=== PATIENT | male | born 1995 | race Caucasian/White ===

== ENCOUNTER 2017-07-15 20:00 | Inpatient (IN) | payer OTHER ==
[2017-07-15 20:03] VITALS: BMI 20.9
--- NOTE | 2017-07-16 00:05 | HP ---
COWS - Scale Resting Pulse: 0= ME 80 or Below Sweatin=Flushed/Facial Moisture Restless Observation: 1= Difficult to Sit Still Pupil Size: 1= Pupils >than Normal Bone or Joint Aches: 4=Acute Joint/Muscle Pain Runny Nose/ Eye Tearin= None GI Upset > 30mins: 1= Stomach Cramp Tremor Observation: 2= Slight Tremor Visible Yawning Observation: 1= 1-2x During Session Anxiety or Irritability: 2=Irritable/Anxious Goose Flesh Skin: 0=Smooth Skin COWS Score: 14 Admission [facility] Chief Complaint: Heroin withdrawal symptoms Allergies/Adverse Reactions: Allergies Allergy/AdvReac Type Severity Reaction Status Date / Time No Known Allergies Allergy Verified 07/15/17 22:06 History of Present Illness: 22 years old male with a year history of heroin dependence is seeking admission to detox. This is patient's first detox and first admission to [facility]. Patient has medical history of depression and denies suicidal attempt and suicidal ideation at this time. Exam Limitations: No Limitations - Ebola screening Have you traveled outside of the country in the last 21 days: No Have you had contact with anyone from an Ebola affected area: No Have you been sick,other than usual withdrawal symptoms: No Do you have a fever: No - Review of Systems Constitutional: Chills, Loss of Appetite, Night Sweats, Changes in sleep, Weakness EENT: reports: No Symptoms Reported Respiratory: reports: No Symptoms reported Cardiac: reports: No Symptoms Reported GI: reports: Poor Appetite, Poor Fluid Intake, Abdominal cramping : reports: No Symptoms Reported Musculoskeletal: reports: Back Pain, Joint Pain, Muscle Pain, Muscle Weakness Integumentary: reports: No Symptoms Reported Neuro: reports: Headache Endocrine: reports: Flushing Hematology: reports: No Symptoms Reported Psychiatric: reports: Mood/Affect Appropiate, Orientated x3, Depressed Other Systems: Reviewed and Negative Patient History - Patient Medical History Hx Anemia: No Hx Asthma: No Hx Chronic Obstructive Pulmonary Disease (COPD): No Hx Cardiac Disorders: No Hx Hypertension: No Hx Hypercholesterolemia: No Hx Pacemaker: No HX Cerebrovascular Accident: No Hx Seizures: No Hx Diabetes: No Hx Gastrointestinal Disorders: No Hx Liver Disease: No Hx Genitourinary Disorders: No Hx Sexually Transmitted Disorders: No Hx Renal Disease (ESRD): No Hx Thyroid Disease: No Hx Human Immunodeficiency Virus (HIV): No (Negative 2017) Hx Hepatitis C: No Hx Depression: Yes Hx Suicide Attempt: No (Denies suicide attempt and suicidal ideation at this time) Hx Bipolar Disorder: No Hx Schizophrenia: No - Patient Surgical History Past Surgical History: No Hx Neurologic Surgery: No Hx Cataract Extraction: No Hx Cardiac Surgery: No Hx Lung Surgery: No Hx Abdominal Surgery: No Hx Appendectomy: No Hx Cholecystectomy: No Hx Genitourinary Surgery: No Hx Section: No Hx Orthopedic Surgery: No Anesthesia Reaction: No - PPD History Previous Implant?: Yes Documented Results: Negative w/proof Implanted On Prior R Admission?: No PPD to be Administered?: Yes - Reproductive History Patient is a Female of Child Bearing Age (11 -55 yrs old): No (MALE) - Smoking Cessation Smoking history: Current some day smoker Have you smoked in the past 12 months: Yes Aproximately how many cigarettes per day: 1 Hx Chewing Tobacco Use: No Initiated information on smoking cessation: Yes 'Breaking Loose' booklet given: 07/16/17 - Substance & Tx. History Hx Alcohol Use: No Hx Substance Use: Yes Substance Use Type: Heroin, Opiates Hx Substance Use Treatment: No - Substances Abused Heroin Route: Inhalation Frequency: Daily Amount used: 10 bags Age of first use: 19 Date of Last Use: 07/15/17 Family Disease History - Family Disease History Family Disease History: Respiratory: Mother (COPD, EMPHYSEMA) Admission Physical Exam BHS - Vital Signs Vital Signs: Vital Signs - 24 hr 07/15/17 20:00 Temperature 98.7 F Pulse Rate 78 Respiratory 18 Rate Blood Pressure 130/62 - Physical General Appearance: Yes: Moderate Distress HEENTM: Yes: EOMI, Normal ENT Inspection, Normal Voice, SARAH Respiratory: Yes: Lungs Clear, Normal Breath Sounds, No Respiratory Distress Neck: Yes: Supple Breast: Yes: Breast Exam Deferred Cardiology: Yes: Regular Rhythm, Regular Rate Abdominal: Yes: Normal Bowel Sounds, Soft Genitourinary: Yes: Within Normal Limits Back: Yes: Normal Inspection Musculoskeletal: Yes: Back pain, Muscle Pain, Muscle weakness Extremities: Yes: Tremors Neurological: Yes: Alert, Normal Mood/Affect Integumentary: Yes: Warm Lymphatic: Yes: Within Normal Limits - Diagnostic (1) Opioid dependence with withdrawal Current Visit: Yes Status: Chronic (2) Depression Current Visit: Yes Status: Chronic Qualifiers: Depression Type: unspecified Qualified Code(s): F32.9 - Major depressive disorder, single episode, unspecified (3) Nicotine dependence Current Visit: Yes Status: Chronic Qualifiers: Nicotine product type: cigarettes Substance use status: uncomplicated Qualified Code(s): F17.210 - Nicotine dependence, cigarettes, uncomplicated BHS Breath Alcohol Content Breath Alcohol Content: 0 Urine Drug Screen - Results Drug Screen Negative: No Urine Drug Screen Results: OPI-Opiates, TCA-Tricyclic Antidepress, OXY-Oxycodone
[2017-07-16] MEDS ORDERED: METHADONE HCL 10 MG TABLET (FOR DETOX USE ONLY) PO ONE ×4 (01:27→23:00)
[2017-07-16] MEDS: diazePAM 5 MG TABLET PO PRN ×4 (01:58→22:32)
[2017-07-16] MEDS ORDERED: MENTHOL/PHENOL 1 EACH UD MM PRN (09:44)
[2017-07-16] MEDS ORDERED: hydrOXYzine PAMOATE 25 MG CAPSULE (FP) PO PRN (09:44)
[2017-07-16] MEDS ORDERED: guaiFENesin/D-METHORPHAN HB 10 ML UNIT-DOSE CUPS PO PRN (09:44)
[2017-07-16] MEDS ORDERED: MAG HYDROX/AL HYDROX/SIMETH 30 ML UNIT-DOSE CUP PO PRN (09:44)
[2017-07-16] MEDS ORDERED: MAGNESIUM HYDROX 2400MG/30ML ORAL SUSPENSION 30 ML CUP PO PRN (09:44)
[2017-07-16] MEDS ORDERED: P-EPHED 60MG/TRIPROLIDI 2.5MG TABLET PO PRN (09:44)
[2017-07-16] MEDS ORDERED: LOPERAMIDE HCL 2 MG CAPSULE PO PRN (09:44)
[2017-07-16] MEDS ORDERED: IBUPROFEN 400 MG TABLET (FP) PO PRN (09:44)
[2017-07-16] MEDS ORDERED: ACETAMINOPHEN 325 MG TABLET (FP) PO PRN (09:44)
[2017-07-16] MEDS ORDERED: MAGNESIUM CITRATE 300 ML BOTTLE PO PRN (09:44)
--- NOTE | 2017-07-16 09:57 | PN ---
BHS COWS - Scale Resting Pulse: 1= [place] 81-100 Sweatin= Chills/Flushing Restless Observation: 3= Extraneous Movement Pupil Size: 1= Pupils >than Normal Bone or Joint Aches: 2= Severe Diffuse Aches Runny Nose/ Eye Tearin= Runny Nose/Eyes GI Upset > 30mins: 2= Nausea/Diarrhea Tremor Observation of Outstretched Hands: 2= Slight Tremor Visible Yawning Observation: 1= 1-2x During Session Anxiety or Irritability: 2=Irritable/Anxious Goose Flesh Skin: 0=Smooth Skin COWS Score: 17 BHS Progress Note (SOAP) Subjective: ALERT,IRRITABLE,ANXIOUS,INTERRUPTED SLEEP,PAIN IN THE BODY AND BACK,VOMITING, TREMOR Objective: 07/16/17 09:55 Vital Signs Temperature 98.2 F 07/16/17 09:00 Pulse Rate 94 H 07/16/17 09:00 Respiratory Rate 18 07/16/17 09:00 Blood Pressure 122/81 07/16/17 09:00 O2 Sat by Pulse Oximetry (%) EKG NSR WITH SINUS ARRHYTHMIA 80/MIN PROLONG QT356/410 NO CHEST PAIN,NO SOB,NO DIZZINESS Assessment: 07/16/17 09:57 WITHDRAWAL SYMPTOM Plan: CONTINUE DETOX
[2017-07-16] MEDS: PRENATAL VITAMINS W/ FOLIC ACID TABLET (FP) PO SCH (10:16)
[2017-07-16] MEDS: cloNIDine HCL 0.1 MG TABLET PO SCH ×2 (10:18→22:32)
[2017-07-16] MEDS: CYCLOBENZAPRINE HCL 10 MG TABLET (FP) PO PRN ×2 (10:18→22:32)
[2017-07-16] MEDS: ONDANSETRON *ODT* 4 MG TABLET SL PRN ×2 (10:18→17:51)
--- NOTE | 2017-07-16 13:51 | EKG ---
Test Reason : Blood Pressure : / mmHG Vent. Rate : 080 BPM Atrial Rate : 080 BPM P-R Int : 148 ms QRS Dur : 080 ms QT Int : 356 ms P-R-T Axes : 073 059 040 degrees QTc Int : 410 ms NORMAL SINUS RHYTHM WITH SINUS ARRHYTHMIA NORMAL ECG NO PREVIOUS ECGS AVAILABLE Confirmed by MD Scott, Asher ([id number]) on 07/16/2017 1:50:58 PM Referred By: Confirmed By:Asher Chavez MD
[2017-07-16 15:00] LABS: URINE APPEARANCE CLEAR; URINE BILIRUBIN NEGATIVE (<2.0 mg/dL); URINE COLOR YELLOW; URINE GLUCOSE (UA) NEGATIVE (NEGATIVE); URINE KETONE NEGATIVE (NEGATIVE); URINE LEUK ESTERASE NEGATIVE (NEGATIVE); URINE NITRITE NEGATIVE (NEGATIVE); URINE PROTEIN NEGATIVE (NEGATIVE)
[2017-07-16] MEDS ORDERED: MELATONIN 5 MG TABLETS PO PRN (22:00)
[2017-07-16] MEDS: THIAMINE HCL 100 MG TABLET (FP) PO SCH (22:31)
[2017-07-17] MEDS ORDERED: METHADONE HCL 10 MG TABLET (FOR DETOX USE ONLY) PO ONE ×2 (10:00)
[2017-07-17 10:18] LABS: HEMATOCRIT 41.5 % (35.4-49); HEMOGLOBIN 14.6 GM/dL (11.7-16.9); MCHC 35.2 g/dl (32.0-35.9); MEAN CELL VOLUME 87.9 fl (80-96); MEAN PLT VOLUME 8.6 fl (7.5-11.1); PLATELET COUNT 234 K/MM3 (134-434); RBC 4.73 M/mm3 (4.00-5.60); RDW 13.2 % (11.9-15.9); WHITE BLOOD COUNT 6.6 K/mm3 (4.0-10.0)
[2017-07-17] MEDS: CYCLOBENZAPRINE HCL 10 MG TABLET (FP) PO PRN ×2 (10:49→22:29)
[2017-07-17] MEDS: PRENATAL VITAMINS W/ FOLIC ACID TABLET (FP) PO SCH (10:49)
[2017-07-17] MEDS: cloNIDine HCL 0.1 MG TABLET PO SCH ×2 (10:49→22:29)
[2017-07-17] MEDS: diazePAM 5 MG TABLET PO PRN ×3 (10:50→22:29)
[2017-07-17 10:57] LABS: CHLORIDE 108 mmol/L (98-107); POTASSIUM 4.3 mmol/L (3.5-5.1); SODIUM 142 mmol/L (136-145)
--- NOTE | 2017-07-17 11:32 | PN ---
BHS COWS - Scale Resting Pulse: 1= [place] 81-100 Sweatin= Chills/Flushing Restless Observation: 3= Extraneous Movement Pupil Size: 1= Pupils >than Normal Bone or Joint Aches: 2= Severe Diffuse Aches Runny Nose/ Eye Tearin= Runny Nose/Eyes GI Upset > 30mins: 2= Nausea/Diarrhea Tremor Observation of Outstretched Hands: 2= Slight Tremor Visible Yawning Observation: 1= 1-2x During Session Anxiety or Irritability: 2=Irritable/Anxious Goose Flesh Skin: 0=Smooth Skin COWS Score: 17 S Progress Note (SOAP) Subjective: ALERT,IRRITABLE,PAIN IN THE BODY AND BACK,TREMOR,INTERRUPTED SLEEP Objective: 07/17/17 11:31 Vital Signs Temperature 99.1 F 07/17/17 09:34 Pulse Rate 99 H 07/17/17 09:34 Respiratory Rate 16 07/17/17 09:34 Blood Pressure 118/72 07/17/17 09:34 O2 Sat by Pulse Oximetry (%) Laboratory Last Values WBC 6.6 K/mm3 (4.0-10.0) 07/17/17 07:30 RBC 4.73 M/mm3 (4.00-5.60) 07/17/17 07:30 Hgb 14.6 GM/dL (11.7-16.9) 07/17/17 07:30 Hct 41.5 % (35.4-49) 07/17/17 07:30 MCV 87.9 fl (80-96) 07/17/17 07:30 MCH 31.0 pg (25.7-33.7) 07/17/17 07:30 MCHC 35.2 g/dl (32.0-35.9) 07/17/17 07:30 RDW 13.2 % (11.9-15.9) 07/17/17 07:30 Plt Count 234 K/MM3 (134-434) 07/17/17 07:30 MPV 8.6 fl (7.5-11.1) 07/17/17 07:30 Urine Color Yellow 07/16/17 10:30 Urine Appearance Clear 07/16/17 10:30 Urine pH 6.0 (5.0-8.0) 07/16/17 10:30 Ur Specific [place] 1.026 (1.001-1.035) 07/16/17 10:30 Urine Protein Negative (NEGATIVE) 07/16/17 10:30 Urine Glucose (UA) Negative (NEGATIVE) 07/16/17 10:30 Urine Ketones Negative (NEGATIVE) 07/16/17 10:30 Urine Blood Negative (NEGATIVE) 07/16/17 10:30 Urine Nitrite Negative (NEGATIVE) 07/16/17 10:30 Urine Bilirubin Negative (<2.0 mg/dL) 07/16/17 10:30 Urine Urobilinogen 2.0 mg/dL (0.2-1.0) 07/16/17 10:30 Ur Leukocyte Esterase Negative (NEGATIVE) 07/16/17 10:30 LABS PENDING Assessment: 07/17/17 11:32 WITHDRAWAL SYMPTOM Plan: CONTINUE DETOX
[2017-07-17 12:05] LABS: ALBUMIN 4.2 g/dl (3.4-5.0); ALK PHOS 65 U/L (45-117); ANION GAP 5 (8-16); BILIRUBIN,TOTAL 0.9 mg/dL (0.2-1.0); BLOOD UREA NITROGEN 11 mg/dL (7-18); CALCIUM 9.5 mg/dL (8.5-10.1); CO2 29 mmol/L (21-32); CREATININE 0.8 mg/dL (0.7-1.3); GLUCOSE,RANDOM 89 mg/dL (74-106); SGOT/AST 29 U/L (15-37); SGPT/ALT 81 U/L (12-78); TOT PROT 7.7 g/dl (6.4-8.2)
[2017-07-17] MEDS: THIAMINE HCL 100 MG TABLET (FP) PO SCH (22:29)
[2017-07-18] MEDS ORDERED: METHADONE HCL 5 MG TABLET (FOR DETOX USE ONLY) PO ONE ×2 (10:00)
[2017-07-18] MEDS: CYCLOBENZAPRINE HCL 10 MG TABLET (FP) PO PRN ×2 (10:06→22:23)
[2017-07-18] MEDS: PRENATAL VITAMINS W/ FOLIC ACID TABLET (FP) PO SCH (10:06)
[2017-07-18] MEDS: cloNIDine HCL 0.1 MG TABLET PO SCH ×2 (10:06→22:22)
[2017-07-18] MEDS: diazePAM 5 MG TABLET PO PRN ×3 (10:07→22:23)
--- NOTE | 2017-07-18 12:37 | PN ---
BHS Progress Note (SOAP) Subjective: ALERT,IRRITABLE,ANXIOUS,INTERRUPTED SLEEP Objective: 07/18/17 12:36 Vital Signs Temperature 97.7 F 07/18/17 09:24 Pulse Rate 83 07/18/17 09:24 Respiratory Rate 20 07/18/17 09:24 Blood Pressure 113/67 07/18/17 09:24 O2 Sat by Pulse Oximetry (%) Assessment: 07/18/17 12:36 WITHDRAWAL SYMPTOM Plan: CONTINUE DETOX
[2017-07-18] MEDS: THIAMINE HCL 100 MG TABLET (FP) PO SCH (22:22)
--- NOTE | 2017-07-19 08:28 | PN ---
BHS Progress Note (SOAP) Subjective: ALERT,IRRITABLE,ANXIOUS,INTERRUPTED SLEEP,PAIN IN THE BODY AND BACK Objective: 07/19/17 08:27 Vital Signs Temperature 97.7 F 07/19/17 06:20 Pulse Rate 68 07/19/17 06:20 Respiratory Rate 16 07/19/17 06:20 Blood Pressure 107/67 07/19/17 06:20 O2 Sat by Pulse Oximetry (%) Assessment: 07/19/17 08:27 WITHDRAWAL SYMPTOM BUT LESS Plan: CONTINUE DETOX,MEDICATION ADJUST,DISCHARGE IN AM
[2017-07-19 09:43] VITALS: BP 135/71; PULSE 109; TEMP 98.8
[2017-07-19] MEDS ORDERED: METHADONE HCL 10 MG TABLET (FOR DETOX USE ONLY) PO ONE (10:00)
[2017-07-19] MEDS ORDERED: METHADONE HCL 5 MG TABLET (FOR DETOX USE ONLY) PO ONE ×2 (10:00)
[2017-07-19] MEDS: cloNIDine HCL 0.1 MG TABLET PO SCH (10:50)
[2017-07-19] MEDS: PRENATAL VITAMINS W/ FOLIC ACID TABLET (FP) PO SCH (10:50)
--- NOTE | 2017-07-19 11:27 | PN ---
S Progress Note Note: PATIENT DID NOT WANT TO COMPLETE TREATMENT,SIGNED RELEASE AMA,ATTEMPTS TO CONVINCE PATIENT TO STAY WITH NO AVAIL
--- NOTE | 2017-07-19 11:30 | DS ---
[facility] Detox Discharge Summary Admission Date: 07/15/17 Discharge Date: 07/19/17 - History Present History: Cocaine Dependence, Opioid Dependence Pertinent Past History: PATIENT DID NOT WANT TO COMPLETE TREATMENT,SIGNED RELEASE AMA - Physical Exam Results Vital Signs: Vital Signs Temperature 98.8 F 07/19/17 09:42 Pulse Rate 109 H 07/19/17 09:42 Respiratory Rate 16 07/19/17 09:42 Blood Pressure 135/71 07/19/17 09:42 O2 Sat by Pulse Oximetry (%) Pertinent Admission Physical Exam Findings: WITHDRAWAL SIGNS AND SYMPTOM Vital Signs Temperature 98.8 F 07/19/17 09:42 Pulse Rate 109 H 07/19/17 09:42 Respiratory Rate 16 07/19/17 09:42 Blood Pressure 135/71 07/19/17 09:42 O2 Sat by Pulse Oximetry (%) Laboratory Last Values WBC 6.6 K/mm3 (4.0-10.0) 07/17/17 07:30 RBC 4.73 M/mm3 (4.00-5.60) 07/17/17 07:30 Hgb 14.6 GM/dL (11.7-16.9) 07/17/17 07:30 Hct 41.5 % (35.4-49) 07/17/17 07:30 MCV 87.9 fl (80-96) 07/17/17 07:30 MCH 31.0 pg (25.7-33.7) 07/17/17 07:30 MCHC 35.2 g/dl (32.0-35.9) 07/17/17 07:30 RDW 13.2 % (11.9-15.9) 07/17/17 07:30 Plt Count 234 K/MM3 (134-434) 07/17/17 07:30 MPV 8.6 fl (7.5-11.1) 07/17/17 07:30 Sodium 142 mmol/L (136-145) 07/17/17 07:30 Potassium 4.3 mmol/L (3.5-5.1) 07/17/17 07:30 Chloride 108 mmol/L (98-107) H 07/17/17 07:30 Carbon Dioxide 29 mmol/L (21-32) 07/17/17 07:30 Anion Gap 5 (8-16) L 07/17/17 07:30 BUN 11 mg/dL (7-18) 07/17/17 07:30 Creatinine 0.8 mg/dL (0.7-1.3) 07/17/17 07:30 Creat Clearance w eGFR > 60 (>60) 07/17/17 07:30 Random Glucose 89 mg/dL (74-106) 07/17/17 07:30 Calcium 9.5 mg/dL (8.5-10.1) 07/17/17 07:30 Total Bilirubin 0.9 mg/dL (0.2-1.0) 07/17/17 07:30 AST 29 U/L (15-37) 07/17/17 07:30 ALT 81 U/L (12-78) H 07/17/17 07:30 Alkaline Phosphatase 65 U/L (45-117) 07/17/17 07:30 Total Protein 7.7 g/dl (6.4-8.2) 07/17/17 07:30 Albumin 4.2 g/dl (3.4-5.0) 07/17/17 07:30 Urine Color Yellow 07/16/17 10:30 Urine Appearance Clear 07/16/17 10:30 Urine pH 6.0 (5.0-8.0) 07/16/17 10:30 Ur Specific [place] 1.026 (1.001-1.035) 07/16/17 10:30 Urine Protein Negative (NEGATIVE) 07/16/17 10:30 Urine Glucose (UA) Negative (NEGATIVE) 07/16/17 10:30 Urine Ketones Negative (NEGATIVE) 07/16/17 10:30 Urine Blood Negative (NEGATIVE) 07/16/17 10:30 Urine Nitrite Negative (NEGATIVE) 07/16/17 10:30 Urine Bilirubin Negative (<2.0 mg/dL) 07/16/17 10:30 Urine Urobilinogen 2.0 mg/dL (0.2-1.0) 07/16/17 10:30 Ur Leukocyte Esterase Negative (NEGATIVE) 07/16/17 10:30 RPR Titer Nonreactive (NONREACTIVE) 07/17/17 07:30 - Treatment Patient has Accepted a Rehab Referral to: DECLINED - Medication Discharge Medications: Ambulatory Orders NK [No Known Home Medication] 07/15/17 - Diagnosis (1) Opioid dependence with withdrawal Current Visit: Yes Status: Chronic (2) Nicotine dependence Current Visit: Yes Status: Chronic Qualifiers: Nicotine product type: cigarettes Substance use status: uncomplicated Qualified Code(s): F17.210 - Nicotine dependence, cigarettes, uncomplicated - AMA Did Patient Leave Against Medical Advice: Yes
[2017-07-20] MEDS ORDERED: METHADONE HCL 5 MG TABLET (FOR DETOX USE ONLY) PO ONE (06:00)
[2017-07-20] MEDS ORDERED: METHADONE HCL 10 MG TABLET (FOR DETOX USE ONLY) PO ONE ×2 (10:00)
[2017-07-21] MEDS ORDERED: METHADONE HCL 5 MG TABLET (FOR DETOX USE ONLY) PO ONE ×2 (06:00)
== END 2017-07-19 12:00 | disposition left against medical advice (07) | DRG 770 ==
LOC: YASAS 20:00 → Y6N 21:27
PROVIDERS: ADMIT Internal Medicine; ATTEND Internal Medicine
PROC: HZ2ZZZZ Detoxification Services for Substance Abuse Treatment (ICD-10-PCS; principal; 2017-07-15)
DX: F11.23 Opioid dependence with withdrawal (principal); F17.210 Nicotine dependence, cigarettes, uncomplicated; F32.9 Major depressive disorder, single episode, unspecified
CPT/HCPCS: 36415; 80053; 81003; 85027; 86593; 93005; 93010; J0735; Q0162

== ENCOUNTER 2018-05-11 16:14 | Emergency (ER) | payer OTHER ==
[2018-05-11 16:19] VITALS: BMI 17.7
--- NOTE | 2018-05-11 16:29 | PDOC ---
Attending Attestation - Resident Resident Name: Lefty Steinberg - ED Attending Attestation I have performed the following: I have examined & evaluated the patient, The case was reviewed & discussed with the resident, I agree w/resident's findings & plan, Exceptions are as noted - HPI HPI: 05/11/18 16:25 23y M hx of heroin, cocaine abuse brought to the ED by his friend for being nonresponsive. The friend notes that the patient had called him for a ride somewhere and what after the patient got into the car he "fell out", so she brought him to the ER for evaluation. Upon arrival the patient was found with his eyes open laying nonresponsive in the passenger seat of the friend's vehicle , she was respiring spontaneously, his pupils are approximately 2 mm, he did not appear cyanotic, the patient was assisted to a stretcher and brought into room 10. The patient was hooked up to a monitor, his heart rate was 140, saturation was normal. IV access was obtained the patient was given 0.4 mg of Narcan. The patient seemed to improve was blinking and able to answer questions. Patient states he shot i bag of heroin prior to calling his friend. He denies any recent benzo use, cocaine use notes he only shot heroin. Patient denies any other complaints including headache dizziness chest pain, short of breath, abdominal pain, nausea, vomiting, diarrhea. - Physicial Exam PE: 05/11/18 16:29 GENERAL: The patient is awake, alert, and fully oriented, Nontoxic - in no acute distress. HEAD: Normocephalic, atraumatic. EYES: extraocular movements intact, sclera anicteric, conjunctiva clear. ENT: Normal voice, Moist mucous membranes. NECK: Normal range of motion, supple LUNGS: Breath sounds equal, clear to auscultation bilaterally. No wheezes, no rhonchi, no rales. HEART: tachycardic, normal S1 and S2 without murmur, rub or gallop. ABDOMEN: Soft, nontender, normoactive bowel sounds. No guarding, no rebound. . No CVA tenderness EXTREMITIES: Normal range of motion, no edema. No clubbing or cyanosis. No cords, erythema, or tenderness. NEUROLOGICAL: No facial assymetry, Normal speech, PSYCH: Normal mood, normal affect. SKIN: track fernandes in his L AC - Critical Care Time Total Critical Care Time: 34 Critical Care Statement: The care of this patient involved high complexity decision making to prevent further life threatening deterioration of the patient 's condition and/or to evaluate & treat vital organ system(s) failure or risk of failure. - Medical Decision Making 05/11/18 16:34 Suspect opiate overdose, possible co-ingestion of stimulants as he was also very tachcycardic also consider GHB due eto the pts appearance (eyes wide open, and sudden improvement) i do suspect there is some componnet of opiates as the pts pupils dilated after getting the narcan obtain blood work, fluids were hydration as the patient is tachycardic. We'll observe the patient here for 2-3 hours, If all is negative, and the patient is sufficiently metabolized the Narcan and is awake and alert we'll discharge the patient 05/11/18 17:12 Patient was reassessed, is awake and alert, heart rate is improved to 94.
[2018-05-11] MEDS ORDERED: SODIUM CHLORIDE 1,000 ML IV ONE (16:36)
[2018-05-11] MEDS ORDERED: NALOXONE HCL 0.4 MG/ML VIAL IVPUSH ONE (16:36)
[2018-05-11 16:42] VITALS: BP 124/73; PULSE 102; TEMP 98.5
[2018-05-11 16:54] LABS: BASO % 0.5 % (0-2.0); EOS % 0.9 % (0-4.5); HEMATOCRIT 46.2 % (35.4-49); HEMOGLOBIN 15.8 GM/dL (11.7-16.9); LYMPH % 30.9 % (8-40); MCH 30.8 pg (25.7-33.7); MCHC 34.2 g/dl (32.0-35.9); MEAN CELL VOLUME 89.9 fl (80-96); MEAN PLT VOLUME 8.5 fl (7.5-11.1); MONO % 13.2 % (3.8-10.2); NEUT % 54.5 % (42.8-82.8); PLATELET COUNT 293 K/MM3 (134-434); RBC 5.13 M/mm3 (4.00-5.60); RDW 14.6 % (11.9-15.9); WHITE BLOOD COUNT 12.1 K/mm3 (4.0-10.0)
[2018-05-11 17:02] LABS: ALBUMIN 4.3 g/dl (3.4-5.0); ALK PHOS 75 U/L (45-117); ANION GAP 8 MMOL/L (8-16); BILIRUBIN,TOTAL 0.5 mg/dL (0.2-1); BLOOD UREA NITROGEN 11 mg/dL (7-18); CALCIUM 9.1 mg/dL (8.5-10.1); CHLORIDE 107 mmol/L (98-107); CO2 27 mmol/L (21-32); CREATININE 0.9 mg/dL (0.55-1.3); GLUCOSE,RANDOM 140 mg/dL (74-106); POTASSIUM 3.9 mmol/L (3.5-5.1); SGOT/AST 17 U/L (15-37); SGPT/ALT 20 U/L (13-61); SODIUM 142 mmol/L (136-145); TOT PROT 8.3 g/dl (6.4-8.2)
[2018-05-11 17:49] LABS: METHADONE, UR NEGATIVE ng/ml (CUTOFF=300); PHENCYCLIDINE,URINE NEGATIVE ng/ml (CUTOFF=25); URINE AMPHETAMINES NEGATIVE ng/ml (CUTOFF=500); URINE BARBITURATES NEGATIVE ng/ml (CUTOFF=200); URINE BENZODIAZEPINES NEGATIVE ng/ml (CUTOFF=200)
[2018-05-11 18:04] LABS: COCAINE, UR POSITIVE ng/ml (CUTOFF=300); OPIATES, URI POSITIVE ng/ml (CUTOFF=300)
--- NOTE | 2018-05-11 18:41 | PDOC ---
History of Present Illness - General Chief Complaint: Overdose Stated Complaint: OVERDOSE Time Seen by Provider: 05/11/18 16:23 - History of Present Illness Initial Comments: 23 year old male with history of polysubstance abuse (heroin, cocaine, and marijuana) 05/11/18 18:13 Past History - Past Medical History Allergies/Adverse Reactions: Allergies Allergy/AdvReac Type Severity Reaction Status Date / Time No Known Allergies Allergy Verified 07/15/17 22:06 Home Medications: Ambulatory Orders Buprenorphine HCl/Naloxone HCl [Suboxone 4 mg-1 mg Sl Film] 1 each SL BID #16 film MDD 2 07/23/17 Anemia: No Asthma: No Cardiac Disorders: No CVA: No COPD: No Diabetes: No GI Disorders: No Disorders: No HTN: No Hypercholesterolemia: No Kidney Stones: No Liver Disease: No Seizures: No Thyroid Disease: No - Surgical History Abdominal Surgery: No Appendectomy: No Cardiac Surgery: No Cholecystectomy: No Lung Surgery: No Neurologic Surgery: No Orthopedic Surgery: No - Reproductive History Testicular Surgery: No - Suicide/Smoking/Psychosocial Hx Smoking History: Current every day smoker Have you smoked in the past 12 months: Yes Number of Cigarettes Smoked Daily: 2 Information on smoking cessation initiated: No 'Breaking Loose' booklet given: 07/23/17 (given previously) Hx Alcohol Use: No Drug/Substance Use Hx: No Substance Use Type: Heroin, Opiates Hx Substance Use Treatment: Yes (detox, outpatient rehab ([facility]) *Physical Exam - Vital Signs Last Vital Signs Temp Pulse Resp BP Pulse Ox 98.5 F 102 H 18 124/73 100 05/11/18 16:33 05/11/18 16:33 05/11/18 16:33 05/11/18 16:33 05/11/18 16:50 Moderate Sedation - Procedure Monitoring Vital Signs: Procedure Monitoring Vital Signs Temperature 98.5 F 05/11/18 16:33 Pulse Rate 102 H 05/11/18 16:33 Respiratory Rate 18 05/11/18 16:33 Blood Pressure 124/73 05/11/18 16:33 O2 Sat by Pulse Oximetry (%) 100 05/11/18 16:50 ED Treatment Course - LABORATORY CBC & Chemistry Diagram: 05/11/18 16:35 05/11/18 16:35 - ADDITIONAL ORDERS Additional order review: Laboratory Results 05/11/18 05/11/18 17:07 16:35 Sodium 142 Potassium 3.9 Chloride 107 Carbon Dioxide 27 Anion Gap 8 BUN 11 Creatinine 0.9 Creat Clearance w eGFR > 60 Random Glucose 140 H Calcium 9.1 Total Bilirubin 0.5 AST 17 ALT 20 Alkaline Phosphatase 75 Total Protein 8.3 H Albumin 4.3 Opiates Screen Positive A* Methadone Screen Negative Barbiturate Screen Negative Phencyclidine Screen Negative Ur Amphetamines Screen Negative MDMA (Ecstasy) Screen Negative Benzodiazepines Screen Negative Cocaine Screen Positive A* U Marijuana (THC) Screen Negative 05/11/18 16:35 RBC 5.13 MCV 89.9 MCHC 34.2 RDW 14.6 D MPV 8.5 Neutrophils % 54.5 Lymphocytes % 30.9 Monocytes % 13.2 H Eosinophils % 0.9 Basophils % 0.5 - Medications Given in the ED: ED Medications Discontinued Medications Generic Name Dose Route Start Last Admin Trade Name Freq PRN Reason Stop Dose Admin Sodium Chloride 1,000 mls @ 1,000 mls/hr 05/11/18 16:36 05/11/18 16:43 Normal Saline - IV 05/11/18 17:35 1,000 mls/hr .Q1H ONE Administration Naloxone HCl 0.4 mg 05/11/18 16:36 05/11/18 16:43 Narcan - IVPUSH 05/11/18 16:37 0.4 mg ONCE ONE Administration *DC/Admit/Observation/Transfer Diagnosis at time of Disposition: Opioid overdose Qualifiers: Encounter type: initial encounter Injury intent: accidental or unintentional Qualified Code(s): T40.2X1A - Poisoning by other opioids, accidental ( unintentional), initial encounter - Discharge Dispostion Disposition: HOME Condition at time of disposition: Improved Decision to Admit order: No - Referrals Referrals: [facility] [place] Internal Med at [place] [Provider Group] - Patient Instructions Printed Discharge Instructions: DI for Opioid Addiction Additional Instructions: Please stop using drugs. They are bad. You will kill yourself. You just narrowly escaped certain today because of your friend. Please seek rehab immediately and stay far away from any friends who use drugs. Please return to our ED if you have new or worsening symptoms. - Post Discharge Activity
== END 2018-05-11 18:50 | disposition home or self-care (01) ==
LOC: JER 16:14
PROC: 3E033GC Introduction of Other Therapeutic Substance into Peripheral Vein, Percutaneous Approach (ICD-10-PCS; principal; 2018-05-11)
DX: T40.2X1A Poisoning by other opioids, accidental (unintentional), initial encounter (principal); F14.10 Cocaine abuse, uncomplicated; F12.10 Cannabis abuse, uncomplicated; F17.210 Nicotine dependence, cigarettes, uncomplicated
CPT/HCPCS: 36415; 80053; 80307; 85025; 96374; 99284-25; J7030